=== PATIENT | female | born 1940 | race Caucasian/White ===

== ENCOUNTER → 2017-03-11 | Outpatient (CLI) | payer OTHER, MEDICARE | LOC: FIMAGING 13:11 | PROVIDERS: ATTEND Family Medicine | CPT/HCPCS: G0202 ==

== ENCOUNTER → 2017-07-17 | Outpatient (CLI) | payer OTHER, MEDICARE | LOC: FIMAGING 13:16 | PROVIDERS: ATTEND Family Medicine | DX: Z13.820 Encounter for screening for osteoporosis (principal); M85.89 Other specified disorders of bone density and structure, multiple sites ==

== ENCOUNTER → 2018-01-06 | Outpatient (CLI) | payer OTHER, MEDICARE | LOC: BHFA 10:00 | PROVIDERS: ATTEND Internal Medicine Cardiovascular Disease | DX: R94.31 Abnormal electrocardiogram [ECG] [EKG] (principal); I11.9 Hypertensive heart disease without heart failure; I43 Cardiomyopathy in diseases classified elsewhere; R60.9 Edema, unspecified ==

== ENCOUNTER → 2018-03-29 | Outpatient (CLI) | payer OTHER, MEDICARE | DX: I80.292 Phlebitis and thrombophlebitis of other deep vessels of left lower extremity (principal) ==

== ENCOUNTER → 2018-10-14 | Outpatient (CLI) | payer OTHER, MEDICARE | LOC: FIMAGING 07:40 | PROVIDERS: ATTEND Radiology Diagnostic Radiology | DX: I83.893 Varicose veins of bilateral lower extremities with other complications (principal) ==

== ENCOUNTER → 2018-12-07 | Outpatient (CLI) | payer OTHER, MEDICARE | LOC: FIMAGING 12:58 | PROVIDERS: ATTEND Family Medicine | DX: E04.2 Nontoxic multinodular goiter (principal) ==

== ENCOUNTER → 2018-12-14 | Outpatient (CLI) | payer OTHER, MEDICARE ==
[~2018-12-14] MED LIST: LIDOCAINE 1% 300 MG/30 ML SDV ONE
== END ==
LOC: FIMAGING 12:12
PROVIDERS: ATTEND Family Medicine
PROC: 0G9H3ZZ Drainage of Right Thyroid Gland Lobe, Percutaneous Approach (ICD-10-PCS; principal; 2018-12-14)
DX: E04.1 Nontoxic single thyroid nodule (principal)

== ENCOUNTER → 2018-12-21 | Outpatient (CLI) | payer OTHER, MEDICARE | LOC: BHFA 10:45 | PROVIDERS: ATTEND Internal Medicine Cardiovascular Disease | DX: R60.9 Edema, unspecified (principal) ==